=== PATIENT | female | born 1970 | race African-American/Black ===

== ENCOUNTER 2019-04-04 08:47 | Emergency (ER) | payer SELFPAY ==
--- NOTE | 2019-04-04 09:28 | EDPHYS ---
Physician Documentation [facility] Name: Isis Gaona Age: 49 yrs Sex: Female : 1970 Arrival Date: 04/04/2019 Time: 08:50 Bed 5 Private MD: ED Physician Chidi Jackman HPI: 04/04 09:41 This 49 yrs old Black Female presents to ER via Ambulatory with complaints of Hand snw Injury. 09:41 The patient or guardian reports pain. The complaints affect the right hand diffusely. snw Context: The problem was sustained outdoors, resulted from laceration injury. Onset: The symptoms/episode began/occurred 1 month(s) ago, and became persistent. Associated signs and symptoms: Pertinent positives: numbness distally. Severity of symptoms: At their worst the symptoms were moderate, severe. The patient has not experienced similar symptoms in the past. Historical: - Allergies: 09:16 No Known Allergies; sv - Home Meds: 09:16 Metoprolol Tartrate Oral [Active]; citalopram oral [Active]; sv - PMHx: 09:16 Hypertension; Anxiety; sv - PSHx: 09:16 None; sv - Immunization history:: Adult Immunizations up to date, Flu vaccine is not up to date. - Social history:: Smoking status: Patient uses tobacco products, smokes .25 packs per day. - Ebola Screening: : No symptoms or risks identified at this time. ROS: 09:37 Constitutional: Negative for fever, chills, and weight loss, Eyes: Negative for injury, snw pain, redness, and discharge, ENT: Negative for injury, pain, and discharge, Neck: Negative for injury, pain, and swelling, Cardiovascular: Negative for chest pain, palpitations, and edema, Respiratory: Negative for shortness of breath, cough, wheezing, and pleuritic chest pain, Abdomen/GI: Negative for abdominal pain, nausea, vomiting, diarrhea, and constipation, Back: Negative for injury and pain, : Negative for injury, bleeding, discharge, and swelling, Neuro: Negative for headache, weakness, numbness, tingling, and seizure, Psych: Negative for depression, anxiety, suicide ideation, homicidal ideation, and hallucinations. 09:37 MS/extremity: Positive for injury or acute deformity, pain, pt had an injury in February in [place] to right hand and forearm. Presents today with pain in right thumb through middle finger with radiation up to elbow. Range of motion slightly limited. Exam: 09:42 Constitutional: This is a well developed, well nourished patient who is awake, alert, snw and in no acute distress. Head/Face: Normocephalic, atraumatic. Eyes: Pupils equal round and reactive to light, extra-ocular motions intact. Lids and lashes normal. Conjunctiva and sclera are non-icteric and not injected. Cornea within normal limits. Periorbital areas with no swelling, redness, or edema. ENT: Nares patent. No nasal discharge, no septal abnormalities noted. Tympanic membranes are normal and external auditory canals are clear. Oropharynx with no redness, swelling, or masses, exudates, or evidence of obstruction, uvula midline. Mucous membranes moist. Neck: Trachea midline, no thyromegaly or masses palpated, and no cervical lymphadenopathy. Supple, full range of motion without nuchal rigidity, or vertebral point tenderness. No Meningismus. Chest/axilla: Normal chest wall appearance and motion. Nontender with no deformity. No lesions are appreciated. Cardiovascular: Regular rate and rhythm with a normal S1 and S2. No gallops, murmurs, or rubs. Normal PMI, no JVD. No pulse deficits. Respiratory: Lungs have equal breath sounds bilaterally, clear to auscultation and percussion. No rales, rhonchi or wheezes noted. No increased work of breathing, no retractions or nasal flaring. Abdomen/GI: Soft, non-tender, with normal bowel sounds. No distension or tympany. No guarding or rebound. No evidence of tenderness throughout. Back: No spinal tenderness. No costovertebral tenderness. Full range of motion. Neuro: Awake and alert, GCS 15, oriented to person, place, time, and situation. Cranial nerves II-XII grossly intact. Motor strength 5/5 in all extremities. Sensory grossly intact. Cerebellar exam normal. Normal gait. Psych: Awake, alert, with orientation to person, place and time. Behavior, mood, and affect are within normal limits. 09:42 Musculoskeletal/extremity: Extremities: grossly normal except: noted in the lateral aspect of right wrist, lateral aspect of right hand, dorsal aspect of distal phalanx of right index finger, dorsal aspect of middle phalanx of right index finger, dorsal aspect of distal phalanx of right middle finger, dorsal aspect of middle phalanx of right middle finger, dorsal aspect of distal phalanx of right ring finger and dorsal aspect of middle phalanx of right ring finger: ROM: limited passive range of motion due to pain, in the dorsal aspect of proximal phalanx of right thumb, dorsal aspect of middle phalanx of right index finger, dorsal aspect of proximal phalanx of right index finger, dorsal aspect of middle phalanx of right middle finger and dorsal aspect of proximal phalanx of right middle finger, Circulation is intact in all extremities. the palmar aspect of distal phalanx of right middle finger, palmar aspect of distal phalanx of right index finger and palmar aspect of distal phalanx of right thumb Tingling of extremity. decreased sensation. 09:42 Skin: Appearance: injury, laceration(s), three areas of laceration repair along thumb and up forearm, no signs of infection, + sutures in some repaired areas remain. . Vital Signs: 09:16 BP 215 / 119; Pulse 77; Resp 18; Temp 98; Pulse Ox 98% ; Weight 58.97 kg; Height 5 ft. sv 5 in. (165.10 cm); Pain 10/10; 10:06 BP 180 / 95; Pulse 74; Resp 15; Pulse Ox 99% on R/A; Pain 5/10; sv 09:16 Body Mass Index 21.63 (58.97 kg, 165.10 cm) sv MDM: 09:20 Patient medically screened. snw 09:35 Data reviewed: vital signs, nurses notes. Data interpreted: Pulse oximetry: on room air snw is 98 %. Interpretation: normal. Counseling: I had a detailed discussion with the patient and/or guardian regarding: the historical points, exam findings, and any diagnostic results supporting the discharge/admit diagnosis, the presence of at least one elevated blood pressure reading (>120/80) during this emergency department visit, the need for outpatient follow up, to return to the emergency department if symptoms worsen or persist or if there are any questions or concerns that arise at home. Special discussion: I have referred the patient to see his PCP for further evaluation of high blood pressure. Based on the history and exam findings, there is no indication for further emergent testing or inpatient evaluation. I discussed with the patient/guardian the need to see the hand specialist for further evaluation of the symptoms. I discussed with the patient/guardian the need to see the primary care provider for further evaluation of the symptoms. Administered Medications: 09:40 Drug: Metoprolol TARTRATE (Lopressor) 50 mg Route: PO; hb 10:06 Follow up: Response: No adverse reaction sv 09:40 Drug: TORadol 30 mg Route: IM; Site: left deltoid; hb 10:06 Follow up: Response: No adverse reaction sv 09:40 Drug: UltRAM 50 mg Route: PO; hb 10:05 Follow up: Response: No adverse reaction sv Disposition: 17:20 Co-signature as Attending Physician, Chidi Jackman MD. rn Disposition: 04/04/19 09:28 Discharged to Home. Impression: Essential (primary) hypertension, Pain in right hand, Pain in hand and fingers, Encounter for removal of sutures. - Condition is Stable. - Discharge Instructions: Hypertension, Musculoskeletal Pain, Suture Removal, Care After, How to Take Your Blood Pressure, [id number], DASH Eating Plan, Heat Therapy, Form - Blood Pressure Record Sheet, Hand Exercises, Hand Pain. - Prescriptions for Ultram 50 mg Oral Tablet - take 1 tablet by ORAL route every 6 hours As needed; 12 tablet. Metoprolol Tartrate 50 mg Oral Tablet - take 1 tablet by ORAL route 2 times per day take with meal; 10 tablet. - Medication Reconciliation Form, Thank You Letter, Antibiotic Education, Prescription Opioid Use form. - Follow up: Emergency Department; When: As needed; Reason: Worsening of condition. Follow up: Private Physician; When: 2 - 3 days; Reason: Recheck today's complaints, Continuance of care, Re-evaluation by your physician. Signatures: Lily Brewster RN RN Whit Menezes, OPTICAL LATHE OPERATOR-C OPTICAL LATHE OPERATOR-Csnw Chidi Jackman MD MD rn Baxter, Heather, RN RN hb Corrections: (The following items were deleted from the chart) 10:07 09:28 04/04/2019 09:28 Discharged to Home. Impression: Essential (primary) sv hypertension; Pain in right hand; Pain in hand and fingers; Encounter for removal of sutures. Condition is Stable. Forms are Medication Reconciliation Form, Thank You Letter, Antibiotic Education, Prescription Opioid Use. Follow up: Emergency Department; When: As needed; Reason: Worsening of condition. Follow up: Private Physician; When: 2 - 3 days; Reason: Recheck today's complaints, Continuance of care, Re-evaluation by your physician. inez
--- NOTE | 2019-04-04 09:28 | ER ---
Nurse's Notes [facility] Name: Isis Gaona Age: 49 yrs Sex: Female : 1970 Arrival Date: 04/04/2019 Time: 08:50 Bed 5 Private MD: Diagnosis: Essential (primary) hypertension;Pain in right hand;Pain in hand and fingers;Encounter for removal of sutures Presentation: 04/04 09:04 Presenting complaint: Patient states: pt was in [place] and had lacerations to the right sv forearm with glass, had sutures placed 03/16/19. Went back after 10 days to have removed but they wouldn't remove them because she had drainage and was placed on Cephalexin. Pt has moved down here and needs sutures removed and pain relief. Reports right 1st-4th digits are numb d/t having severed some of her nerves. Transition of care: patient was not received from another setting of care. Onset of symptoms was March 16, 2019. Risk Assessment: Do you want to hurt yourself or someone else? Patient reports no desire to harm self or others. Initial Sepsis Screen: Does the patient meet any 2 criteria? No. Patient's initial sepsis screen is negative. Does the patient have a suspected source of infection? No. Patient's initial sepsis screen is negative. Care prior to arrival: None. 09:04 Method Of Arrival: Ambulatory sv 09:04 Acuity: AMOL 3 sv Triage Assessment: 09:04 General: Appears in no apparent distress. uncomfortable, well developed, Behavior is sv cooperative, appropriate for age. Pain: Complains of pain in right wrist Pain currently is 10 out of 10 on a pain scale. Pain began 03/16/19 Is continuous, Aggravated by increased activity. Neuro: Level of Consciousness is awake, alert, obeys commands, Oriented to person, place, time, situation, Moves all extremities. Full function Gait is steady, Speech is normal. Respiratory: Airway is patent Respiratory effort is even, unlabored, Respiratory pattern is regular, symmetrical. Derm: Skin is pink, warm \T\ dry. Derm: pt has sutures to the right inner and outer wrist area. Musculoskeletal: Swelling present in right thumb, right middle finger, right ring finger and Right index finger Reports numbness in right thumb, right middle finger, right ring finger and Right index finger. Historical: - Allergies: 09:16 No Known Allergies; sv - Home Meds: 09:16 Metoprolol Tartrate Oral [Active]; citalopram oral [Active]; sv - PMHx: 09:16 Hypertension; Anxiety; sv - PSHx: 09:16 None; sv - Immunization history:: Adult Immunizations up to date, Flu vaccine is not up to date. - Social history:: Smoking status: Patient uses tobacco products, smokes .25 packs per day. - Ebola Screening: : No symptoms or risks identified at this time. Screenin:04 Abuse screen: Denies threats or abuse. Denies injuries from another. Nutritional sv screening: No deficits noted. Tuberculosis screening: No symptoms or risk factors identified. Fall Risk None identified. Assessment: :43 Reassessment: Pt waiting IM shot time before discharge. sv 10:06 Reassessment: Patient appears in no apparent distress at this time. Patient and/or sv family updated on plan of care and expected duration. Pain level reassessed. Patient is alert, oriented x 3, equal unlabored respirations, skin warm/dry/pink. Vital Signs: 09:16 BP 215 / 119; Pulse 77; Resp 18; Temp 98; Pulse Ox 98% ; Weight 58.97 kg; Height 5 ft. sv 5 in. (165.10 cm); Pain 10/10; 10:06 BP 180 / 95; Pulse 74; Resp 15; Pulse Ox 99% on R/A; Pain 5/10; sv 09:16 Body Mass Index 21.63 (58.97 kg, 165.10 cm) sv ED Course: 08:50 Patient arrived in ED. mr 09:00 Whit Dhaliwal FNP-C is PHCP. snw 09:00 Chidi Jackman MD is Attending Physician. snw 09:04 Patient has correct armband on for positive identification. Bed in low position. Call sv light in reach. Adult w/ patient. Pulse ox on. NIBP on. Door closed. Head of bed elevated. 09:11 Lily Brewster, SEAN is Primary Nurse. sv 09:15 Triage completed. sv 09:17 Arm band placed on. sv 09:43 No provider procedures requiring assistance completed. Patient did not have IV access sv during this emergency room visit. Administered Medications: 09:40 Drug: Metoprolol TARTRATE (Lopressor) 50 mg Route: PO; hb 10:06 Follow up: Response: No adverse reaction sv 09:40 Drug: TORadol 30 mg Route: IM; Site: left deltoid; hb 10:06 Follow up: Response: No adverse reaction sv 09:40 Drug: UltRAM 50 mg Route: PO; hb 10:05 Follow up: Response: No adverse reaction sv Outcome: 09:28 Discharge ordered by . inez 10:06 Discharged to home ambulatory, with family. sv 10:06 Condition: stable 10:06 Discharge instructions given to patient, Instructed on discharge instructions, follow up and referral plans. medication usage, Demonstrated understanding of instructions, follow-up care, medications, Prescriptions given X 2. 10:07 Patient left the ED. sv Signatures: Lily Brewster, RN RN Whit Dhaliwal, BLADE BALANCER-C BLADE BALANCER-Charles Lyndsay Dior mr Stefania Martínez, SEAN RN
[2019-04-04] MEDS ORDERED: TRAMADOL HCL 50 MG TAB ONE (09:35)
[2019-04-04] MEDS ORDERED: METOPROLOL TAR 50 MG TAB ONE (09:35)
[2019-04-04] MEDS ORDERED: KETOROLAC 30 MG/ML INJ ONE ×2 (09:36→09:38)
[2019-04-04 10:12] VITALS: TEMP 98
[2019-04-04 10:14] VITALS: BP 180/95; O2SAT 99
== END 2019-04-04 10:07 | disposition home or self-care (01) ==
LOC: ER 08:47
DX: M25.541 Pain in joints of right hand (principal); I10 Essential (primary) hypertension; Z48.02 Encounter for removal of sutures; F41.9 Anxiety disorder, unspecified
CPT/HCPCS: 96372; 99283